=== PATIENT | male | born 1995 | race Hispanic/Latino ===

== ENCOUNTER → 2018-09-13 | Outpatient (CLI) | payer BC | LOC: DX 14:46 | PROVIDERS: ATTEND Surgery | DX: K44.9 Diaphragmatic hernia without obstruction or gangrene (principal); K21.9 Gastro-esophageal reflux disease without esophagitis ==

== ENCOUNTER → 2018-10-17 | Outpatient (CLI) | payer BC ==
[2018-10-17 16:01] LABS: BASOPHILS % 0.9 % (0.0-1.0); EOSINOPHILS # (AUTO) 0.1 (0.0-0.4); EOSINOPHILS % 1.1 % (0.0-6.0); HEMATOCRIT 42.3 % (38.2-49.6); HEMOGLOBIN 14.4 g/dL (14.0-18.0); LYMPHOCYTES # (AUTO) 2.1 (1.0-3.2); LYMPHOCYTES % 47.8 % (18.0-39.1); MEAN CORPUSCULAR VOLUME 85.1 fL (81-99); MONOCYTES # (AUTO) 0.4 (0.2-0.8); MONOCYTES % 9.1 % (4.4-11.3); NEUTROPHILS # (AUTO) 1.8 (2.1-6.9); NEUTROPHILS % 40.9 % (38.7-80.0); PLATELET COUNT 218 x10e3/uL (140-360); RED BLOOD COUNT 4.97 x10e6/uL (4.3-5.7); RED CELL DISTRIBUTION WIDTH 11.8 % (11.7-14.4)
--- NOTE | 2018-10-17 16:13 | Diagnostic Imaging Report ---
FLUOROSCOPIC BARIUM SWALLOW WITH UPPER GI HISTORY: Hiatal hernia, GERD COOKING CASING AND DRYING SUPERVISOR: Sveta Dempsey MD Comparison: None. Procedure: Double contrast barium swallow and upper GI fluoroscopic exam was performed using thick and thin oral barium and effervescent crystals. Radiation Exposure: Fluoroscopy Time: 0.7 minutes Radiation dose: 7.2 mGy Dose area product: 1.6 Gycm2 DISCUSSION: ESOPHAGUS: Motility: Unremarkable. Mucosa: Unremarkable. Distensibility: Normal. GASTROESOPHAGEAL JUNCTION: Small hiatal hernia. GASTROESOPHAGEAL REFLUX: Moderate inducible gastroesophageal reflux above the level of the sudeep with water siphon test. STOMACH: Normally distensible and demonstrates normal contours and mucosal pattern. DUODENUM/PROXIMAL SMALL BOWEL: Unremarkable in appearance. IMPRESSION: Moderate inducible gastroesophageal reflux. Small hiatal hernia. Signed by: Dr. Sveta Dempsey MD on 10/17/2018 4:10 PM
--- NOTE | 2018-10-17 16:13 | Diagnostic Imaging Report ---
FLUOROSCOPIC BARIUM SWALLOW WITH UPPER GI HISTORY: Hiatal hernia, GERD IT PORTFOLIO MANAGER: Sveta Dempsey MD Comparison: None. Procedure: Double contrast barium swallow and upper GI fluoroscopic exam was performed using thick and thin oral barium and effervescent crystals. Radiation Exposure: Fluoroscopy Time: 0.7 minutes Radiation dose: 7.2 mGy Dose area product: 1.6 Gycm2 DISCUSSION: ESOPHAGUS: Motility: Unremarkable. Mucosa: Unremarkable. Distensibility: Normal. GASTROESOPHAGEAL JUNCTION: Small hiatal hernia. GASTROESOPHAGEAL REFLUX: Moderate inducible gastroesophageal reflux above the level of the sudeep with water siphon test. STOMACH: Normally distensible and demonstrates normal contours and mucosal pattern. DUODENUM/PROXIMAL SMALL BOWEL: Unremarkable in appearance. IMPRESSION: Moderate inducible gastroesophageal reflux. Small hiatal hernia. Signed by: Dr. Sveta Dempsey MD on 10/17/2018 4:10 PM
[2018-10-17 16:18] LABS: ALANINE AMINOTRANSFERASE 33 IU/L (0-55); ALBUMIN/GLOBULIN RATIO 2.1 (0.8-2.0); ALKALINE PHOSPHATASE 76 IU/L (40-150); ANION GAP 14.9 mmol/L (8-16); BLOOD UREA NITROGEN 18 mg/dL (7-26); BUN/CREATININE RATIO 18 (6-25); CALCIUM 9.7 mg/dL (8.4-10.2); CARBON DIOXIDE 28 mmol/L (22-29); CHLORIDE 96 mmol/L (98-107); CREATININE, SERUM 0.98 mg/dL (0.72-1.25); EST GLOMERULAR FILTRATION RATE > 60 ML/MIN (60-); GLUCOSE 93 mg/dL (74-118); POTASSIUM 3.9 mmol/L (3.5-5.1); SODIUM 135 mmol/L (136-145)
[2018-10-17 16:38] LABS: THYROID STIMULATING HORMONE 0.985 uIU/mL (0.350-4.940)
== END ==
LOC: DX 14:43
PROVIDERS: ATTEND Surgery
DX: K44.9 Diaphragmatic hernia without obstruction or gangrene (principal); K21.9 Gastro-esophageal reflux disease without esophagitis
CPT/HCPCS: 36415; 74220; 74246; 80053; 84443; 85025

== ENCOUNTER 2019-05-13 07:29 | Inpatient (IN) | payer BC ==
[2019-05-10 17:01] LABS: BASOPHILS % 0.4 % (0.0-1.0); EOSINOPHILS % 0.9 % (0.0-6.0); HEMATOCRIT 40.9 % (38.2-49.6); HEMOGLOBIN 14.1 g/dL (14.0-18.0); LYMPHOCYTES # (AUTO) 1.5 (1.0-3.2); LYMPHOCYTES % 33.3 % (18.0-39.1); MEAN CORPUSCULAR HEMOGLOBIN 29.5 pg (28-32); MEAN CORPUSCULAR HGB CONC 34.5 g/dL (31-35); MEAN CORPUSCULAR VOLUME 85.6 fL (81-99); MONOCYTES # (AUTO) 0.5 (0.2-0.8); MONOCYTES % 11.7 % (4.4-11.3); NEUTROPHILS # (AUTO) 2.5 (2.1-6.9); NEUTROPHILS % 53.5 % (38.7-80.0); PLATELET COUNT 220 x10e3/uL (140-360); RED BLOOD COUNT 4.78 x10e6/uL (4.3-5.7); RED CELL DISTRIBUTION WIDTH 11.9 % (11.7-14.4)
[2019-05-10 17:16] LABS: ANION GAP 12.8 mmol/L (8-16); BLOOD UREA NITROGEN 17 mg/dL (7-26); BUN/CREATININE RATIO 17 (6-25); CALCIUM 9.6 mg/dL (8.4-10.2); CARBON DIOXIDE 27 mmol/L (22-29); CHLORIDE 101 mmol/L (98-107); CREATININE, SERUM 1.01 mg/dL (0.72-1.25); EST GLOMERULAR FILTRATION RATE > 60 ML/MIN (60-); GLUCOSE 92 mg/dL (74-118); POTASSIUM 3.8 mmol/L (3.5-5.1); SODIUM 137 mmol/L (136-145)
[~2019-05-13] VITALS: Ht 177.8 cm; Wt 72.6 kg
[~2019-05-13 07:29] MED LIST: MULTIVITAMINS1 EAC7 PO; PROBIOTIC & AC1 EACH PO; RANITIDINE HCL300 M1 PO
--- OUTSIDE RECORDS SUMMARY | 2019-05-13 07:32 | XMS REPORT ---
Author Author [facility] Address Unknown Phone Unavailable Care Team Providers Care Senior Corporate Accountant Name Role Phone Ilene MONTESINOS Unavailable Unavailable Payers Payer Name Policy Type Policy Number Effective Date Expiration Date Problems This patient has no known problems. Allergies, Adverse Reactions, Alerts Allergy Name Allergy Type Status Severity Reaction(s) Onset Date Inactive Date Treating Clinician Comments No Known Allergies DA Active U 2018-06-16 00:00:00 No Known Allergies DA Active U 2016-08-28 00:00:00 Medications This patient has no known medications. Results Test Description Test Time Test Comments Text Results Atomic Results Result Comments ESOPHAGRAM 2018-10-17 16:05:00 [place] [address] Patient Name: DAVID VILLALPANDO MR #: [id number] : 1995 Age/Sex: 23/M Req #: [id number] Adm Physician: Ordered by: KWAME MONTESINOS MD Report #: [id number] Location: DX Room/Bed: Procedure: [id number] DX/ESOPHAGRAM Exam Date: 10/17/18 Exam Time: 1530 REPORT STATUS: Signed FLUOROSCOPIC BARIUM SWALLOW WITH UPPER GI HISTORY: Hiatal hernia, GERD SHIRT PRESSER: Georgia Boyce MD Comparison: None. Procedure: Double contrast barium swallow and upper GI fluoroscopic exam was performed using thick and thin oral barium and effervescent crystals. Radiation Exposure: Fluoroscopy Time: 0.7 minutes Radiation dose: 7.2 mGy Dose area product: 1.6 Gycm2 DISCUSSION: ESOPHAGUS: Motility: Unremarkable. Mucosa: Unremarkable. Distensibility: Normal. GASTROESOPHAGEAL JUNCTION: Small hiatal hernia. GASTROESOPHAGEAL REFLUX: Moderate inducible gastroesophageal reflux above the level of the sudeep with water siphon test. STOMACH: Normally distensible and demonstrates normal contours and mucosal pattern. DUODENUM/PROXIMAL SMALL BOWEL: Unremarkable in appearance. IMPRESSION: Moderate inducible gastroesophageal reflux. Small hiatal hernia. Signed by: Dr. Georgia Boyce MD on 10/17/2018 4:10 PM Dictated By: GEORGIA BOYCE MD 1610 Transcribed By: RUBY on 10/17/18 1610 COPY TO: KWAME MONTESINOS MD UPPER GI W/AIR CONTR 2018-10-17 16:05:00 [place] [address] Patient Name: DAVID VILLALPANDO MR #: [id number] : 1995 Age/Sex: 23/M Req #: [id number] [facility] Physician: Ordered by: KWAME MONTESINOS MD Report #: [id number] Location: DX Room/Bed: Procedure: [id number] DX/UPPER GI W/AIR CONTR Exam Date: 10/17/18 Exam Time: 1530 REPORT STATUS: Signed FLUOROSCOPIC BARIUM SWALLOW WITH UPPER GI HISTORY: Hiatal hernia, GERD SHIRT PRESSER: Georgia Boyce MD Comparison: None. Procedure: Double contrast barium swallow and upper GI fluoroscopic exam was performed using thick and thin oral barium and effervescent crystals. Radiation Exposure: Fluoroscopy Time: 0.7 minutes Radiation dose: 7.2 mGy Dose area product: 1.6 Gycm2 DISCUSSION: ESOPHAGUS: Motility: Unr emarkable. Mucosa: Unremarkable. Distensibility: Normal. GASTROESOPHAGEAL JUNCTION: Small hiatal hernia. GASTROESOPHAGEAL REFLUX: Moderate inducible gastroesophageal reflux above the level of the sudeep with water siphon test. STOMACH: Normally distensible and demonstrates normal contours and mucosal pattern. DUODENUM/PROXIMAL SMALL BOWEL: Unremarkable in appearance.
[2019-05-13] MEDS ORDERED: BUPIVACAINE 0.25%/EPI 30ML SDV INJ ONE (10:26)
[2019-05-13] MEDS ORDERED: PROMETHAZINE HCL (IM) 25 MG/ML VIAL IV PRN (12:45)
[2019-05-13] MEDS: PANTOPRAZOLE 40 MG 10ML VIAL IV SCH (12:45)
[2019-05-13] MEDS ORDERED: ACETAMINOPHEN 1000 MG/100 ML IV PRN (12:45)
[2019-05-13] MEDS: SODIUM CHLORIDE 0.9% 250ML IRRIG IR SCH ×3 (12:45→20:50)
--- NOTE | 2019-05-13 13:23 | Operative Report ---
DATE OF PROCEDURE: 05/13/2019 SURGEON: Jaycob Morrison MD PREOPERATIVE DIAGNOSIS: Hiatal hernia with gastroesophageal reflux disease. POSTOPERATIVE DIAGNOSIS: Hiatal hernia with gastroesophageal reflux disease. OPERATION PERFORMED: Laparoscopic repair of hiatal hernia and Jduy fundoplication. CASING MAN: Yvon Morrison MD ANESTHESIA: General endotracheal. COMPLICATIONS: None. ESTIMATED BLOOD LOSS: Minimal. DESCRIPTION OF PROCEDURE: With the patient lying in bed in the supine position under good general endotracheal anesthesia, the abdomen was prepped with Betadine solution and draped in the usual manner. A Veress needle was introduced into the left upper abdomen and pneumoperitoneum was established without any difficulty. An 11 mm trocar was placed in the left upper abdomen and a 10 mm video laparoscope was placed into the intraabdominal cavity. Under direct vision, two 5 mm trocars were placed in the subxiphoid region and another one was placed in the right upper quadrant and another 11 mm trocar was placed in the left upper abdomen. Laparoscopy at this point, we did not reveal any abnormalities other than there was quite a bit of scarring around the hiatus. The patient had a previous bougie and NG tube placed. The peritoneum overlying the right crura was then opened and the right crura was identified and dissected all the way around. The esophagus was then dissected anteriorly without any difficulty. The posterior esophagus was then dissected all the way up to the short gastrics using the Harmonic Scalpel. The short gastrics were then taken down using the Harmonic scalpel all the way up to the top of the hiatus and diffuse a good circumferential dissection of the esophagus. There was reasonable length of the esophagus intra-abdominally. The crura were then approximated with interrupted sutures of 0 Ethibond posteriorly, this gave us a satisfactory repair of the crura without any tension. The fundus of the stomach was then brought in a retroesophageal fashion to the right side and a 360 degree Judy fundoplication was then created with interrupted sutures of 0 Ethibond anchoring one side of the fundus to the lower esophagus to the either side of the fundus. Three sutures were necessary. This gave us is a nice floppy Judy fundoplication. The bougie was then removed. The NG tube was left in the stomach. The whole area was irrigated, perfect hemostasis was ascertained. The pneumoperitoneum was evacuated and all the trocars were removed under direct vision. The fascia of the 11 mm trocars was closed with 0 Vicryl. All layers were infiltrated on the way out with solution of 0.25% Marcaine. Subcutaneous tissue was approximated with 3-0 Vicryl and all puncture wounds were closed with subcuticular 5-0 Vicryl. Benzoin, Steri-Strips, and Band- Aids were applied. The sponge, lap, and needle counts were correct. The patient tolerated the procedure well and returned to the recovery room in stable condition. MD SANTO Hill/DEBBIE /[id number]
[2019-05-13] MEDS ORDERED: FENTANYL CITRATE/PF 100MCG/2 ML INJ ONE ×2 (14:17→14:51)
[2019-05-13] MEDS ORDERED: MIDAZOLAM HCL 2 MG/2 ML VIAL ONE (14:51)
--- NOTE | 2019-05-13 15:05 | NUR ---
report received from PACU. patient to arrive to unit via stretcher, alert and oriented.
--- NOTE | 2019-05-13 15:13 | NUR ---
patient arrived to unit via stretcher alert and oriented. call beltrán within reach and bed in lowest position.
[2019-05-13 15:15] VITALS: BP 121/65
[2019-05-13 15:54] VITALS: BP 121/65
[2019-05-13] MEDS ORDERED: SODIUM CHLORIDE 0.9% 50ML 50 ML ONE (17:24)
[2019-05-13] MEDS: HYDROMORPHONE 1MG/1ML INJ IV PRN ×2 (17:30→21:18)
[2019-05-13] MEDS ORDERED: DEXAMETHASONE SOD PHOS INJ 4 MG/ML VIAL ONE (18:16)
[2019-05-13] MEDS ORDERED: PROPOFOL IV EMULSION 10 MG/ML 20 ML VIAL ONE (18:16)
[2019-05-13] MEDS ORDERED: SEVOFLURANE INHAL SOLN 250 ML PEN BTL ONE (18:16)
[2019-05-13] MEDS ORDERED: ROCURONIUM BROMIDE 10 MG/ML 5ML VIAL ONE (18:16)
[2019-05-13] MEDS ORDERED: ONDANSETRON HCL INJ 2MG/ML 2ML 2 MG/ML VIAL ONE (18:16)
[2019-05-13] MEDS ORDERED: LIDOCAINE HCL 2% LOCAL INJ 5 ML SDV VIAL INJ ONE (18:16)
--- NOTE | 2019-05-13 18:50 | NUR ---
rounded with night coordinator nurse, patient aware of change and in no distress. call beltrán within reach, mother at bedside and bed in lowest position.
[2019-05-13] MEDS: DEXTROSE 5%/LACTATED RINGERS 1,000 ML IV SCH ×2 (19:15→22:44)
[2019-05-13 20:00] VITALS: BP 105/58
--- NOTE | 2019-05-13 20:45 | NUR ---
Assessment done.no resp.distress.abd.pain voiced .ambulates .voided in the rest room.incision sites dry.scd is in place.on npo.ng tube connected to low intermittent suction wall. no passes gas.no vomiting.family member at bed side.bed locked and in lowest position.phone and call light within reach.instructed to call for asistance as needed. Addendum: 05/14/19 at 0219 by Pranav Saxena RN NG TUBE TO LCWS
[2019-05-13 21:00] VITALS: BP 110/62
[2019-05-13 23:28] VITALS: BP 107/60
[2019-05-14] MEDS: SODIUM CHLORIDE 0.9% 250ML IRRIG IR SCH ×3 (00:48→08:41)
[2019-05-14] MEDS: HYDROMORPHONE 1MG/1ML INJ IV PRN ×6 (01:06→22:53)
[2019-05-14 04:00] VITALS: BP 100/61
[2019-05-14] MEDS: DEXTROSE 5%/LACTATED RINGERS 1,000 ML IV SCH ×3 (04:13→22:55)
[2019-05-14 06:23] LABS: BASOPHILS % 0.1 % (0.0-1.0); HEMATOCRIT 37.4 % (38.2-49.6); HEMOGLOBIN 12.9 g/dL (14.0-18.0); LYMPHOCYTES # (AUTO) 1.3 (1.0-3.2); LYMPHOCYTES % 11.9 % (18.0-39.1); MEAN CORPUSCULAR HEMOGLOBIN 29.3 pg (28-32); MEAN CORPUSCULAR HGB CONC 34.5 g/dL (31-35); MONOCYTES # (AUTO) 1.2 (0.2-0.8); MONOCYTES % 11.6 % (4.4-11.3); NEUTROPHILS # (AUTO) 8.1 (2.1-6.9); PLATELET COUNT 185 x10e3/uL (140-360); RED CELL DISTRIBUTION WIDTH 11.7 % (11.7-14.4)
[2019-05-14 06:44] LABS: ANION GAP 9.5 mmol/L (8-16); BLOOD UREA NITROGEN 9 mg/dL (7-26); BUN/CREATININE RATIO 11 (6-25); CALCIUM 9.2 mg/dL (8.4-10.2); CARBON DIOXIDE 29 mmol/L (22-29); CHLORIDE 97 mmol/L (98-107); EST GLOMERULAR FILTRATION RATE > 60 ML/MIN (60-); GLUCOSE 114 mg/dL (74-118); POTASSIUM 3.5 mmol/L (3.5-5.1); SODIUM 132 mmol/L (136-145)
--- NOTE | 2019-05-14 07:00 | NUR ---
Bed side shift report given to the oncoming rn.stable condition.
--- NOTE | 2019-05-14 07:05 | NUR ---
PT RESTING IN BED [id number] PT FAMILY IS AT BEDSIDE PT IS IN NO S.S OF DISTRESS STATES PAIN IS COMFORTABLE AT THIS TIME LAP SITES COVERED WITH BANDAGES DRY AND INTACT RIGHT HAND 20 G WITH FLUIDS . IV SITE IS CLEAN AND DRY PT HAS NG TUBE TO LEFT NARE ON LCS DRAING PINK/BROWN OUTPUT SED ON FOR DVT PROPHYLAXIS. WILL CONTINUE TO MONITOR PT CLOSELY, SIDE RAILSX2, BED WHEELS LOCKED, CALL LIGHT IS WITHIN EASY REACH, INSTRUCTED TO CALL FOR ASSISTANCE IF NEEDED
[2019-05-14 07:28] VITALS: BP 102/59
[2019-05-14 07:41] VITALS: BP 102/59
[2019-05-14 11:46] VITALS: BP 112/70
--- NOTE | 2019-05-14 12:19 | NUR ---
NG TUBE DC AT THIS TIME PER MD Jp VEGA
[2019-05-14] MEDS: PANTOPRAZOLE 40 MG 10ML VIAL IV SCH (13:22)
[2019-05-14] MEDS ORDERED: ACETAMINOPHEN 1000 MG/100 ML IV PRN (15:45)
[2019-05-14] MEDS ORDERED: ACETAMINOPHEN 1000 MG/100 ML 100 ML IV PRN (16:00)
[2019-05-14 16:18] VITALS: BP 112/70
--- NOTE | 2019-05-14 19:30 | NUR ---
Bed side shift report taken from morning staff Deya..patient is lyeing in the bed.stable condition.tolerates the diet.
[2019-05-14 20:53] VITALS: BP 114/60
[2019-05-15] VITALS: BP 104/67
--- NOTE | 2019-05-15 00:45 | NUR ---
rounds the pt.uses ics.ambulates.passes gas .bed in lowest position.phone and call light within reach.instructed to call for assistance as needed.
[2019-05-15] MEDS: HYDROMORPHONE 1MG/1ML INJ IV PRN ×3 (02:56→15:50)
[2019-05-15 04:00] VITALS: BP 122/71
--- NOTE | 2019-05-15 07:12 | NUR ---
Bed side shift report given to the oncoming rn.walking rounds done.
[2019-05-15 07:28] VITALS: BP 112/73
[2019-05-15 08:14] VITALS: BP 112/73
[2019-05-15 12:00] VITALS: BP 120/63
[2019-05-15] MEDS: PANTOPRAZOLE 40 MG 10ML VIAL IV SCH (12:07)
[2019-05-15] MEDS: DEXTROSE 5%/LACTATED RINGERS 1,000 ML IV SCH (12:18)
[2019-05-15 16:39] VITALS: BP 112/59
== END 2019-05-15 19:05 | disposition home or self-care (01) | DRG 328 ==
LOC: OR 07:29 → PACU V 12:45 → MED/SURG 15:14 → OBSVTOIN 05-14 17:36
PROVIDERS: ADMIT Surgery; ATTEND Surgery
PROC: 0DV44ZZ Restriction of Esophagogastric Junction, Percutaneous Endoscopic Approach (ICD-10-PCS; 2019-05-13)
PROC: 0BQT4ZZ Repair Diaphragm, Percutaneous Endoscopic Approach (ICD-10-PCS; principal; 2019-05-13 10:35)
DX: K44.9 Diaphragmatic hernia without obstruction or gangrene (principal); K21.9 Gastro-esophageal reflux disease without esophagitis
CPT/HCPCS: 36415; 80048; 85025; G0378; J1100; J1170; J2001; J2250; J2405; J2550; J3010